=== PATIENT | male | born 1985 | race Caucasian/White ===

== ENCOUNTER 2021-07-12 12:24 | Emergency (ER) | payer OTHER, MEDICAID, SELFPAY ==
[2021-07-12 12:39] VITALS: BP 139/81; PULSE 74; RESP 18; TEMP 36.2; O2SAT 99; BMI 36.5
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
[2021-07-12] MEDS: ACETAMINOPHEN 325 MG TABLET 975 MG PO (14:08)
[2021-07-12 15:02] LABS: Add Manual Diff / Slide Review NO; Basophils Absolute Auto 100 /uL (0-100); Basophils Percent Auto 0.8 % (0-2); Eosinophils Absolute Auto 400 /uL (0-450); Eosinophils Percent Auto 5.6 % (2-4); Hematocrit 52.3 % (41-53); Hemoglobin 17.8 g/dL (13.5-17.5); Lymphocytes Absolute Auto 1600 /uL (1100-4500); Mean Corpuscular Hemoglobin 32.6 PG (26-34); Mean Corpuscular Volume 95.7 fL (80-100); Monocytes Absolute Auto 700 /uL (0-900); Neutrophils Absolute Auto 4700 /uL (1500-7000); Neutrophils Percent Auto 62.6 % (50-75); Platelet Count 155 X10^3/uL (150-400); Red Blood Cell Count 5.47 X10^6/uL (4.5-5.9); Red Cell Distribution Width 13.7 % (11.6-14.8); White Blood Cell Count 7.5 X10^3/uL (4.5-11.0)
[2021-07-12 15:27] LABS: Alanine Aminotransferase 127 IU/L (<50); Albumin 4.7 g/dL (3.5-5.0); Albumin Globulin Ratio 1.3 (1.0-2.8); Alkaline Phosphatase 41 U/L (38-126); Aspartate Aminotransferase 65 IU/L (17-59); BUN Creatinine Ratio 12.5 (6-22); Bilirubin Total 0.8 mg/dL (0.2-1.3); Blood Urea Nitrogen 9 mg/dL (9-20); Calcium 9.3 mg/dL (8.4-10.2); Carbon Dioxide 24 mmol/L (22-32); Chloride 107 mmol/L (98-107); Creatine Kinase 121 U/L (55-170); Estimated Glomerular Filt Rate > 60.0 mL/min (>60); Globulin 3.6 g/dL (1.7-4.1); Glucose 83 mg/dL (70-100); HEMOLYSIS 24 (0-50); Potassium 4.5 mmol/L (3.4-5.1); Sodium 140 mmol/L (137-145); Total Protein 8.3 g/dL (6.3-8.2)
[2021-07-12] MEDS: TRIMETH/SULFA 160/800 (DS) TABLET 1 TAB PO (15:44)
[2021-07-12] MEDS: cephALEXin 250 MG CAPSULE 500 MG PO (15:44)
[2021-07-12 16:19] VITALS: BP 138/80; PULSE 75; RESP 16; O2SAT 99
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
== END 2021-07-12 16:19 | disposition home or self-care (01) ==
PROVIDERS: Emergency Provider Student in an Organized Health Care Education/Training Program
DX: L03.114 Cellulitis of left upper limb (principal); T23.262A Burn of second degree of back of left hand, initial encounter; X15.0XXA Contact with hot stove (kitchen), initial encounter
CPT/HCPCS: 36415; 73130; 80053; 82550; 85025; 99284

== ENCOUNTER 2023-02-02 16:02 | Emergency (ER) | payer OTHER, MEDICAID, SELFPAY ==
[2023-02-02] VITALS (14 sets, daily range): BP systolic 144–196; BP diastolic 84–109; PULSE 59–96; RESP 12–18; TEMP 36.8–37.1; O2SAT 96–100; BMI 35.3
[2023-02-02] MEDS: ONDANSETRON 4 MG ODT SL (16:14)
--- NOTE | 2023-02-02 16:16 | ED.ABDPAIN ---
HPI - Abdominal Pain <DO Joseph Infante Last Filed: 02/04/23 07:28> General Chief Complaint: Abdominal Pain Stated Complaint: LLQ abd pain Time Seen by Provider: 02/02/23 16:12 Source: patient Mode of arrival: Ambulatory History of Present Illness HPI narrative: 38-year-old male smoker with prior history of IV drug abuse presents with a chief complaint of a sudden onset and severe left lower quadrant pain that woke him from sleep. He states it is quite severe and seems to come in waves of intensifying pain without any obvious provocation, palliation or radiation. Denies any trauma or injury. He is had no history of the same. He denies any trouble moving his bowels or with urination. He states the pain is so severe it is making him vomit Related Data Home Medications Medication Instructions Recorded Confirmed methadone 10 mg tablet 71 mg PO Q DAY ##0 07/07/17 Previous Rx's Medication Instructions Recorded sulfamethoxazole 800 1 tab PO BID #20 tabs 07/07/17 mg-trimethoprim 160 mg tablet meloxicam 7.5 mg tablet 7.5 mg PO BID PRN pain #10 tabs 02/02/23 ondansetron 4 mg disintegrating 4 mg PO QID PRN nausea and 02/02/23 tablet vomiting #7 tabs Allergies Allergy/AdvReac Type Severity Reaction Status Date / Time No Known Drug Allergies Allergy Verified 02/02/23 16:14 Review of Systems <DO Joseph Infante Last Filed: 02/04/23 07:28> Review of Systems Narrative: GENERAL: Denies chills, fatigue, malaise, fever, sweats. HEENT: Denies sinus pain, ear pain, sore throat, difficulty swallowing, dizziness. RESPIRATORY: Denies dyspnea, cough, wheezing, hemoptysis, sputum. CARDIOVASCULAR: Denies chest pain, palpitations, orthopnea, edema, GI see HPI : Denies dysuria, frequency, incontinence, hematuria, urinary retention. MUSCULOSKELETAL: denies weakness, joint pain, or bony pain SKIN: Denies rash, skin lesions, or other NEUROLOGIC: Denies weakness, headache, numbness, change in speech, confusion, seizures, incoordination. PSYCHIATRIC: No concerning psychosocial issues. 12 point review of systems is negative except for those stated above Patient History <DO Joseph Infante Last Filed: 02/04/23 07:28> Social History Smoking Status: Current every day smoker Smoking Status: Current every day smoker alcohol intake frequency: 0-2 drinks per day Substance Use Type: marijuana Exam <Cr Ortiz DO - Last Filed: 02/04/23 07:28> Narrative Exam Narrative: GENERAL: [38] year old patient appears stated age. Well-developed patient, in moderate distress HEAD: Atraumatic. Normocephalic. EYES: Pupils equal round and reactive. Extraocular motions intact. No scleral icterus. No injection or drainage. ENT: Nose without bleeding, purulent drainage. Throat without erythema, tonsillar hypertrophy or exudate. Airway patent. NECK: Trachea midline. Non tender CARDIOVASCULAR: Regular rate and rhythm without murmurs, gallops, or rubs. RESPIRATORY: Clear to auscultation. Breath sounds equal bilaterally. No wheezes, rales, or rhonchi. GASTROINTESTINAL: Abdomen soft, significant tenderness left lower quadrant, nondistended. EXTREMITIES: No edema or joint tenderness. BACK: Nontender without deformity or crepitance. No flank tenderness. NEURO: AOx3. SKIN: No rash or erythema of visible areas Initial Vital Signs Initial Vital Signs: Vital Signs Temperature 98.7 F 02/02/23 16:06 Pulse Rate 66 02/02/23 16:06 Respiratory Rate 18 02/02/23 16:06 Blood Pressure 196/109 H 02/02/23 16:06 Pulse Oximetry 96 02/02/23 16:06 Oxygen Delivery Method Room Air 02/02/23 16:06 <Charisma Gimenez DO - Last Filed: 02/03/23 03:52> Initial Vital Signs Initial Vital Signs: Vital Signs Temperature 98.7 F 02/02/23 16:06 Pulse Rate 66 02/02/23 16:06 Respiratory Rate 18 02/02/23 16:06 Blood Pressure 196/109 H 02/02/23 16:06 Pulse Oximetry 96 02/02/23 16:06 Oxygen Delivery Method Room Air 02/02/23 16:06 Course <Cr Ortiz DO - Last Filed: 02/04/23 07:28> Orders Ordered: Discontinued Medications Lidocaine HCl 10 ml/ Sodium (Chloride) 60 mls @ 360 mls/hr IV NOW ONE Stop: 02/02/23 16:45 Last Infusion: 02/02/23 17:18 Dose: 0 mls/hr Documented By: Admin: 02/02/23 16:54 Dose: 360 mls/hr Documented By: BROOKE Sodium Chloride (Normal Saline 0.9%) 1,000 mls @ 1,000 mls/hr IV BOLUS ONE Stop: 02/02/23 17:56 Last Infusion: 02/02/23 18:23 Dose: 0 mls/hr Documented By: Admin: 02/02/23 17:16 Dose: 1,000 mls/hr Documented By: JORDAN Sodium Chloride (Normal Saline 0.9%) 1,000 mls @ 1,000 mls/hr IV BOLUS ONE Stop: 02/02/23 19:27 Last Infusion: 02/02/23 20:02 Dose: 0 mls/hr Documented By: Admin: 02/02/23 18:50 Dose: 1,000 mls/hr Documented By: JORDAN Ketorolac Tromethamine (Ketorolac 30 Mg/Ml Vial) 15 mg IV NOW ONE Stop: 02/02/23 16:45 Last Admin: 02/02/23 16:54 Dose: 15 mg Documented By: BROOKE Lorazepam (Lorazepam 2 Mg/Ml Inj) 1 mg IV NOW ONE Stop: 02/02/23 18:38 Last Admin: 02/02/23 18:50 Dose: 1 mg Documented By: JORDAN Metoclopramide HCl (Metoclopramide 10 Mg/2 Ml Inj) 10 mg IV NOW ONE Stop: 02/02/23 17:34 Last Admin: 02/02/23 17:40 Dose: 10 mg Documented By: JORDAN Ondansetron HCl (Ondansetron 4 Mg/2 Ml Inj) 4 mg IV NOW PRN PRN Reason: Nausea And Vomiting Last Admin: 02/02/23 16:45 Dose: 4 mg Documented By: MILAGROS Ondansetron HCl (Ondansetron 4 Mg Odt) 4 mg SL NOW ONE Stop: 02/02/23 16:13 Last Admin: 02/02/23 16:14 Dose: 4 mg Documented By: MILAGROS Pantoprazole Sodium (Pantoprazole 40 Mg Vial) 40 mg IV NOW ONE Stop: 02/02/23 17:34 Last Admin: 02/02/23 17:40 Dose: 40 mg Documented By: JORDAN Reevaluation(s) Reevaluation #1: Patient feeling significant improvement after Toradol and lidocaine drip Vital Signs Vital signs: Vital Signs - 8 hr 02/02/23 20:00 02/02/23 20:00 Temperature 98.2 F Pulse Rate 96 H Blood Pressure 144/86 H Pulse Oximetry 99 <Charisma Gimenez DO - Last Filed: 02/03/23 03:52> Orders Ordered: Discontinued Medications Lidocaine HCl 10 ml/ Sodium (Chloride) 60 mls @ 360 mls/hr IV NOW ONE Stop: 02/02/23 16:45 Last Infusion: 02/02/23 17:18 Dose: 0 mls/hr Documented By: Admin: 02/02/23 16:54 Dose: 360 mls/hr Documented By: BROOKE Sodium Chloride (Normal Saline 0.9%) 1,000 mls @ 1,000 mls/hr IV BOLUS ONE Stop: 02/02/23 17:56 Last Infusion: 02/02/23 18:23 Dose: 0 mls/hr Documented By: Admin: 02/02/23 17:16 Dose: 1,000 mls/hr Documented By: JORDAN Sodium Chloride (Normal Saline 0.9%) 1,000 mls @ 1,000 mls/hr IV BOLUS ONE Stop: 02/02/23 19:27 Last Infusion: 02/02/23 20:02 Dose: 0 mls/hr Documented By: Admin: 02/02/23 18:50 Dose: 1,000 mls/hr Documented By: JORDAN Ketorolac Tromethamine (Ketorolac 30 Mg/Ml Vial) 15 mg IV NOW ONE Stop: 02/02/23 16:45 Last Admin: 02/02/23 16:54 Dose: 15 mg Documented By: BROOKE Lorazepam (Lorazepam 2 Mg/Ml Inj) 1 mg IV NOW ONE Stop: 02/02/23 18:38 Last Admin: 02/02/23 18:50 Dose: 1 mg Documented By: JORDAN Metoclopramide HCl (Metoclopramide 10 Mg/2 Ml Inj) 10 mg IV NOW ONE Stop: 02/02/23 17:34 Last Admin: 02/02/23 17:40 Dose: 10 mg Documented By: JORDAN Ondansetron HCl (Ondansetron 4 Mg/2 Ml Inj) 4 mg IV NOW PRN PRN Reason: Nausea And Vomiting Last Admin: 02/02/23 16:45 Dose: 4 mg Documented By: MILAGROS Ondansetron HCl (Ondansetron 4 Mg Odt) 4 mg SL NOW ONE Stop: 02/02/23 16:13 Last Admin: 02/02/23 16:14 Dose: 4 mg Documented By: MILAGROS Pantoprazole Sodium (Pantoprazole 40 Mg Vial) 40 mg IV NOW ONE Stop: 02/02/23 17:34 Last Admin: 02/02/23 17:40 Dose: 40 mg Documented By: JORDAN Vital Signs Vital signs: Vital Signs - 8 hr 02/02/23 20:00 02/02/23 20:00 Temperature 98.2 F Pulse Rate 96 H Blood Pressure 144/86 H Pulse Oximetry 99 MDM - Abdominal Pain <Cr Ortiz DO - Last Filed: 02/04/23 07:28> Lab Data 02/02/23 16:40 02/02/23 16:40 Labs: Lab Results 02/02/23 02/02/23 02/02/23 Range/Units 16:40 16:40 16:40 WBC 10.1 (4.5-11.0) X10^3/uL RBC 5.18 (4.5-5.9) X10^6/uL Hgb 17.0 (13.5-17.5) g/dL Hct 49.6 (41-53) % MCV 95.7 (80-100) fL MCH 32.9 (26-34) PG MCHC 34.4 (30-36) % RDW 13.5 (11.6-14.8) % Plt Count 202 (150-400) X10^3/uL Neut % (Auto) 62.4 (50-75) % Lymph % (Auto) 22.6 L (25-40) % [place] % (Auto) 9.3 (3-14) % Eos % (Auto) 5.3 H (2-4) % Baso % (Auto) 0.4 (0-2) % Neut # (Auto) 6300 (0004-4863) /uL Lymph # (Auto) 2300 (1452-1247) /uL [place] # (Auto) 900 (0-900) /uL Eos # (Auto) 500 H (0-450) /uL Baso # (Auto) 0 (0-100) /uL Sodium 139 (137-145) mmol/L Potassium 3.7 (3.4-5.1) mmol/L Chloride 107 (98-107) mmol/L Carbon Dioxide 22 (22-32) mmol/L BUN 10 (9-20) mg/dL Creatinine 0.80 (0.66-1.25) mg/dL Estimated GFR > 60 (>60) mL/min BUN/Creatinine Ratio 12.5 (6-22) Glucose 120 H (70-100) mg/dL Calcium 8.7 (8.4-10.2) mg/dL Magnesium 1.8 (1.6-2.3) mg/dL Total Bilirubin 0.8 (0.2-1.3) mg/dL AST 49 (17-59) IU/L ALT 91 H (<50) IU/L Alkaline Phosphatase 57 (38-126) U/L Total Protein 8.1 (6.3-8.2) g/dL Albumin 4.7 (3.5-5.0) g/dL Globulin 3.4 (1.7-4.1) g/dL Albumin/Globulin Ratio 1.4 (1.0-2.8) Lipase 341 H (23-300) U/L Point of care testing: Urine Dip Bedside Urine Glucose Negative Bedside Urine Bilirubin - Negative Bedside Urine Ketone +/- 5 Urine Specific [place] 1.030 Bedside Urine Occult Blood - Negative Bedside Urine pH 5.5 Bedside Urine Protein - Negative Bedside Urine Urobilinogen - Negative Bedside Urine Nitrite - Negative Bedside Urine Leukocytes - Negative Esterase MDM Narrative Medical decision making narrative: [38] year old patient presents with severe, sudden onset left lower quadrant pain Multiple etiologies for patient's symptoms considered including, but not limited to: [Kidney stone versus bowel obstruction versus other] Prior Charts reviewed in our EMR Primary Historian: patient Labs reviewed and interpreted by myself: No leukocytosis or left shift, Imaging reviewed: Consultations: Patient's symptoms improved over duration of stay with above-stated therapies. Findings and discharge diagnosis discussed with patient/family followed by verbalization of understanding Return precautions discussed with patient/family whom verbalize understanding of diagnosis and plan <Charisma Gimenez, DO - Last Filed: 02/03/23 03:52> Lab Data Labs: Lab Results 02/02/23 02/02/23 02/02/23 Range/Units 16:40 16:40 16:40 WBC 10.1 (4.5-11.0) X10^3/uL RBC 5.18 (4.5-5.9) X10^6/uL Hgb 17.0 (13.5-17.5) g/dL Hct 49.6 (41-53) % MCV 95.7 (80-100) fL MCH 32.9 (26-34) PG MCHC 34.4 (30-36) % RDW 13.5 (11.6-14.8) % Plt Count 202 (150-400) X10^3/uL Neut % (Auto) 62.4 (50-75) % Lymph % (Auto) 22.6 L (25-40) % [place] % (Auto) 9.3 (3-14) % Eos % (Auto) 5.3 H (2-4) % Baso % (Auto) 0.4 (0-2) % Neut # (Auto) 6300 (2920-3935) /uL Lymph # (Auto) 2300 (3044-6258) /uL [place] # (Auto) 900 (0-900) /uL Eos # (Auto) 500 H (0-450) /uL Baso # (Auto) 0 (0-100) /uL Sodium 139 (137-145) mmol/L Potassium 3.7 (3.4-5.1) mmol/L Chloride 107 (98-107) mmol/L Carbon Dioxide 22 (22-32) mmol/L BUN 10 (9-20) mg/dL Creatinine 0.80 (0.66-1.25) mg/dL Estimated GFR > 60 (>60) mL/min BUN/Creatinine Ratio 12.5 (6-22) Glucose 120 H (70-100) mg/dL Calcium 8.7 (8.4-10.2) mg/dL Magnesium 1.8 (1.6-2.3) mg/dL Total Bilirubin 0.8 (0.2-1.3) mg/dL AST 49 (17-59) IU/L ALT 91 H (<50) IU/L Alkaline Phosphatase 57 (38-126) U/L Total Protein 8.1 (6.3-8.2) g/dL Albumin 4.7 (3.5-5.0) g/dL Globulin 3.4 (1.7-4.1) g/dL Albumin/Globulin Ratio 1.4 (1.0-2.8) Lipase 341 H (23-300) U/L Point of care testing: Urine Dip Bedside Urine Glucose Negative Bedside Urine Bilirubin - Negative Bedside Urine Ketone +/- 5 Urine Specific [place] 1.030 Bedside Urine Occult Blood - Negative Bedside Urine pH 5.5 Bedside Urine Protein - Negative Bedside Urine Urobilinogen - Negative Bedside Urine Nitrite - Negative Bedside Urine Leukocytes - Negative Esterase MDM Narrative Medical decision making narrative: [38] year old patient presents with severe, sudden onset left lower quadrant pain Multiple etiologies for patient's symptoms considered including, but not limited to: [Kidney stone versus bowel obstruction versus other] Prior Charts reviewed in our EMR Primary Historian: patient Labs reviewed and interpreted by myself: No leukocytosis or left shift, Imaging reviewed: Consultations: Patient's symptoms improved over duration of stay with above-stated therapies. Findings and discharge diagnosis discussed with patient/family followed by verbalization of understanding Return precautions discussed with patient/family whom verbalize understanding of diagnosis and plan 02/02/23 Mank: Patient was seen evaluated by myself after sign-out. Reviewed labs and imaging. Patient's workup had return but was still having some vomiting was given dose of Ativan which was quite helpful. On re-evaluation patient is feeling improved he would like to return home. He would like to avoid narcotics for pain management but is can continue little bit left lower quadrant pain we did review his imaging there is some esophagitis type changes but he states pain is definitely left lower quadrant. Review patient's workup, imaging, examination and plan for some antinausea medication with return precautions. Patient feels comfortable with this plan. Discharge Plan Departure Patient Disposition: Home Clinical Impression: Abdominal pain, Vomiting Instructions: DI for Vomiting -- Adult Activity Restrictions/Additional Instructions: Please follow-up if persisting. Your imaging does show some thickening or changes to the esophagus and a small hiatal hernia, if you are having epigastric pain or discomfort would be appropriate for EGD. Would also be appropriate to take Pepcid 40 mg once daily. You can take Zofran 1 tablet every 6 hours as needed for nausea and vomiting. You can take Tylenol up to a 1000 mg every 6 hours as needed for pain. And/or meloxicam 1 tablet every 12 hours as needed for pain. This medication is an NSAID do not take with naproxen, ibuprofen or Aleve. Prescription sent to [facility] in [place]. Please return for fevers, persistent vomiting, lightheadedness or passing out, worsening pain, black or bloody stools, difficulty with urination or other new or concerning changes. Prescriptions: New ondansetron 4 mg tablet,disintegrating 4 mg PO QID PRN (Reason: nausea and vomiting) Qty: 7 0RF meloxicam 7.5 mg tablet 7.5 mg PO BID PRN (Reason: pain) Qty: 10 0RF No Action methadone 10 MG tablet 71 mg PO Q DAY Qty: 0 sulfamethoxazole-trimethoprim 800 MG/160 MG tablet 1 tab PO BID Qty: 20 0RF Stand Alone Forms: Patient Portal/API
[2023-02-02] MEDS: ONDANSETRON 4 MG/2 ML INJ IV (16:45)
[2023-02-02] MEDS: LIDOCAINE 2% IV (16:54)
[2023-02-02] MEDS: SODIUM CHLORIDE 0.9% IV (16:54)
[2023-02-02] MEDS: KETOROLAC 30 MG/ML VIAL 15 MG IV (16:54)
--- NOTE | 2023-02-02 16:57 | DI.CT.S_ITS ---
PROCEDURE: CT KIDNEY URETER BLADDER (KUB) INDICATIONS: severe LLQ pain, sudden onset TECHNIQUE: Axial sections were acquired from the lung bases to the pubic symphysis. Coronal and sagittal reformats were performed. For radiation dose reduction, the following was used: automated exposure control, adjustment of mA and/or kV according to patient size. COMPARISON: None. FINDINGS: Image quality: Good Lower chest: Suspected basal atelectasis. Small hiatal hernia and distal esophageal fluid, not well evaluated on CT otherwise. Consider endoscopy correlation if there is concern. Solid organs: The liver appears unremarkable. Gallbladder is unremarkable. No pathologic dilation of the biliary tree or pancreatic duct. No splenomegaly. There are small left adrenal adenomas, measuring up to 1.8 cm, correlate with laboratory studies to determine functional status. No hydronephrosis. No radiopaque calculi. Vessels and lymph nodes: No abdominal aortic aneurysm. No pathologic adenopathy by size criteria. Bowel and peritoneum: No evidence of small bowel obstruction, abscess, or pathologic ascites. The appendix appears normal. Body wall: Partially visualized right possible gynecomastia, not well evaluated on this study. Fat stranding in the bilateral gluteal regions, without drainable fluid collection, correlate with exam findings. Pelvis: Bladder is under distended. Small bilateral fat containing inguinal hernias. Bones: No acute or suspicious osseous finding identified. There are degenerative changes. Leftward spinal curvature peer IMPRESSION: No acute abdominal pelvic abnormality. Small hiatal hernia and possible distal esophagitis and reflux, consider correlation with endoscopy if necessary. Other findings as above. Dictated by: Hong Blakely M.D. on 02/02/2023 at 18:06 Approved by: Hong Blakely M.D. on 02/02/2023 at 18:12
[2023-02-02 17:01] LABS: Add Manual Diff / Slide Review NO; Basophils Absolute Auto 0 /uL (0-100); Basophils Percent Auto 0.4 % (0-2); Eosinophils Absolute Auto 500 /uL (0-450); Eosinophils Percent Auto 5.3 % (2-4); Hematocrit 49.6 % (41-53); Lymphocytes Absolute Auto 2300 /uL (1100-4500); Lymphocytes Percent Auto 22.6 % (25-40); Mean Corpuscular HGB Conc 34.4 % (30-36); Mean Corpuscular Hemoglobin 32.9 PG (26-34); Mean Corpuscular Volume 95.7 fL (80-100); Monocytes Absolute Auto 900 /uL (0-900); Monocytes Percent Auto 9.3 % (3-14); Neutrophils Absolute Auto 6300 /uL (1500-7000); Neutrophils Percent Auto 62.4 % (50-75); Platelet Count 202 X10^3/uL (150-400); Red Blood Cell Count 5.18 X10^6/uL (4.5-5.9); Red Cell Distribution Width 13.5 % (11.6-14.8); White Blood Cell Count 10.1 X10^3/uL (4.5-11.0)
[2023-02-02 17:14] LABS: Alanine Aminotransferase 91 IU/L (<50); Albumin 4.7 g/dL (3.5-5.0); Albumin Globulin Ratio 1.4 (1.0-2.8); Alkaline Phosphatase 57 U/L (38-126); Aspartate Aminotransferase 49 IU/L (17-59); BUN Creatinine Ratio 12.5 (6-22); Bilirubin Total 0.8 mg/dL (0.2-1.3); Blood Urea Nitrogen 10 mg/dL (9-20); Calcium 8.7 mg/dL (8.4-10.2); Carbon Dioxide 22 mmol/L (22-32); Chloride 107 mmol/L (98-107); Estimated Glomerular Filt Rate > 60 mL/min (>60); Globulin 3.4 g/dL (1.7-4.1); Glucose 120 mg/dL (70-100); HEMOLYSIS 17 (0-50); Lipase 341 U/L (23-300); Potassium 3.7 mmol/L (3.4-5.1); Sodium 139 mmol/L (137-145); Total Protein 8.1 g/dL (6.3-8.2)
[2023-02-02 17:15] LABS: Magnesium 1.8 mg/dL (1.6-2.3)
[2023-02-02] MEDS: SODIUM CHLORIDE 0.9% 1,000 ML 1000 ML IV ×2 (17:16→18:50)
[2023-02-02] MEDS: METOCLOPRAMIDE 10 MG/2 ML INJ IV (17:40)
[2023-02-02] MEDS: PANTOPRAZOLE 40 MG VIAL IV (17:40)
[2023-02-02] MEDS: LORazepam 2 MG/ML INJ 1 MG IV (18:50)
== END 2023-02-02 20:22 | disposition home or self-care (01) ==
PROVIDERS: Emergency Medicine; Nurse Practitioner Critical Care Medicine; Emergency Provider Emergency Medicine
DX: R10.32 Left lower quadrant pain (principal); R11.10 Vomiting, unspecified
CPT/HCPCS: 36415; 74176; 80053; 81003; 83690; 83735; 85025; 93005; 93010; 96361; 96365; 96375; 99284; C9113; J1885; J2060; J2405; J2765

== ENCOUNTER 2023-06-21 03:12 | Emergency (ER) | payer OTHER, SELFPAY ==
[2023-06-21] VITALS (9 sets, daily range): BP systolic 116–139; BP diastolic 66–86; PULSE 72–94; RESP 18; TEMP 36.8; O2SAT 93–100; BMI 36.5
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
--- NOTE | 2023-06-21 03:51 | DI.US.S_ITS ---
PROCEDURE: US PERIPH VENOUS UP EXTREM RT INDICATIONS: PAIN, EDEMA TECHNIQUE: Real-time imaging, as well as color and pulse Doppler interrogation, was performed of the right upper extremity deep veins from the inferior neck to the antecubital fossa. COMPARISON: None. FINDINGS: The internal jugular vein, visualized portions of the subclavian vein, axillary, and brachial veins are free of intraluminal thrombus. Where physically possible, the veins are normally compressible. Color and pulse Doppler demonstrate normal intraluminal flow, with expected phasicity and pulsatility. Additional scanning of the cephalic and basilic veins of the superficial system demonstrates normal compressibility, without thrombus. IMPRESSION: No findings of upper extremity deep venous thrombosis can be seen. Findings are concordant with preliminary interpretation provided by [facility]. Dictated by: Nate Martines M.D. on 06/21/2023 at 8:23 Approved by: Nate Martines M.D. on 06/21/2023 at 8:24
[2023-06-21] MEDS: TRIMETH/SULFA 160/800 (DS) TABLET 1 TAB PO (04:00)
[2023-06-21] MEDS: cephALEXin 250 MG CAP PREPACK 1 BOTTLE MISC (04:00)
[2023-06-21 04:38] LABS: Add Manual Diff / Slide Review NO; Basophils Absolute Auto 100 /uL (0-100); Basophils Percent Auto 0.5 % (0-2); Eosinophils Absolute Auto 200 /uL (0-450); Eosinophils Percent Auto 1.3 % (2-4); Hematocrit 45.9 % (41-53); Hemoglobin 15.5 g/dL (13.5-17.5); Lymphocytes Absolute Auto 1400 /uL (1100-4500); Mean Corpuscular HGB Conc 33.9 % (30-36); Mean Corpuscular Hemoglobin 31.9 PG (26-34); Mean Corpuscular Volume 94.3 fL (80-100); Monocytes Absolute Auto 1300 /uL (0-900); Monocytes Percent Auto 11.1 % (3-14); Neutrophils Absolute Auto 8900 /uL (1500-7000); Neutrophils Percent Auto 75.1 % (50-75); Platelet Count 163 X10^3/uL (150-400); Red Blood Cell Count 4.87 X10^6/uL (4.5-5.9); Red Cell Distribution Width 13.7 % (11.6-14.8); White Blood Cell Count 11.8 X10^3/uL (4.5-11.0)
[2023-06-21 04:48] LABS: Lactate (Lactic Acid) 1.5 mmol/L (0.7-2.1)
[2023-06-21 04:49] LABS: Alanine Aminotransferase 64 IU/L (<50); Albumin Globulin Ratio 1.1 (1.0-2.8); Alkaline Phosphatase 47 U/L (38-126); Aspartate Aminotransferase 35 IU/L (17-59); Bilirubin Total 0.6 mg/dL (0.2-1.3); Blood Urea Nitrogen 20 mg/dL (9-20); Calcium 8.8 mg/dL (8.4-10.2); Carbon Dioxide 21 mmol/L (22-32); Chloride 106 mmol/L (98-107); Estimated Glomerular Filt Rate > 60 mL/min (>60); Globulin 3.6 g/dL (1.7-4.1); Glucose 122 mg/dL (70-100); HEMOLYSIS 36 (0-50); Potassium 3.6 mmol/L (3.4-5.1); Sodium 138 mmol/L (137-145); Total Protein 7.6 g/dL (6.3-8.2)
== END 2023-06-21 04:52 | disposition home or self-care (01) ==
PROVIDERS: Emergency Provider Emergency Medicine
DX: L03.113 Cellulitis of right upper limb (principal)
CPT/HCPCS: 80053; 83605; 85025; 93971; 99283; 99284

== ENCOUNTER 2023-06-23 13:03 | Observation (INO) | payer OTHER, SELFPAY ==
[2023-06-23] VITALS (14 sets, daily range): BP systolic 105–138; BP diastolic 55–82; PULSE 60–96; RESP 16–18; TEMP 36.1–36.4; O2SAT 93–99; BMI 35.3
--- NOTE | 2023-06-23 13:19 | DI.US.S_ITS ---
PROCEDURE: US PERIPH VENOUS UP EXTREM RT INDICATIONS: RIGHT UPPER EXTREMITY PAIN, EDEMA REDNESS TECHNIQUE: Real-time imaging, as well as color and pulse Doppler interrogation, was performed of the right upper extremity deep veins from the inferior neck to the antecubital fossa. COMPARISON: [facility], CT, CT UE RT W CON, 06/23/2023, 14:40. [facility], US, US PERIPH VENOUS UP EXTREM RT, 06/21/2023, 4:32. FINDINGS: The internal jugular vein, visualized portions of the subclavian vein, axillary, and brachial veins are free of intraluminal thrombus. Where physically possible, the veins are normally compressible. Color and pulse Doppler demonstrate normal intraluminal flow, with expected phasicity and pulsatility. Additional scanning of the cephalic and basilic veins of the superficial system demonstrates normal compressibility, without thrombus. Cephalic vein is diminutive in caliber. IMPRESSION: No deep venous thrombosis in the right upper extremity. Dictated by: Anjelica Galo M.D. on 06/23/2023 at 15:30 Approved by: Anjelica Galo M.D. on 06/23/2023 at 15:33
--- NOTE | 2023-06-23 13:24 | DI.CT.S_ITS ---
PROCEDURE: CT UE RT W CON INDICATIONS: worsening pain, swelling redness in Right arm TECHNIQUE: After the administration of intravenous contrast, 3 mm axial sections acquired of the right upper extremity , with coronal and sagittal reformats. COMPARISON: None. FINDINGS: Image quality: Excellent. Bones: No trauma or osteomyelitis found. Soft tissues: From the axial level of approximately the middle 3rd of the humerus extending inferiorly to the wrist there is subcutaneous edema within the adipose soft tissues and also mild cutaneous thickening but no abscess formation and no gas within the soft tissues is seen. The pattern is most prominent over the forearm. A foreign body is not identified. No vascular abnormalities such as venous thrombosis or arterial occlusion is seen. Several mildly prominent rounded lymph nodes are identified at the upper extent of this soft tissue abnormality, none with central necrosis or definite malignant-appearing characteristics. IMPRESSION: The pattern discussed above is most likely a manifestation of soft tissue infection without abscess formation or underlying osteomyelitis or foreign body. No evidence of necrotizing fasciitis. No vascular compromise found. Mild reactive adenopathy. Dictated by: Tab Hollins M.D. on 06/23/2023 at 15:24 Approved by: Tab Hollins M.D. on 06/23/2023 at 15:31
--- NOTE | 2023-06-23 13:48 | ED_ITS ---
HPI - Skin/Abscess/Foreign Bdy General Chief complaint: Skin/Abscess/Foreign Body Stated complaint: has celluitus not getting better Time Seen by Provider: 06/23/23 13:19 Source: patient Mode of arrival: Ambulatory History of Present Illness HPI narrative: 38-year-old male smoker and previous IV drug abuser presents for the 2nd time this week and worsening pain, swelling and redness of his right forearm. He had been seen and evaluated a few days ago and diagnosed with cellulitis. He had negative ultrasound and was discharged with a prescription for Keflex and Bactrim. He has been taking as directed and presents today stating he has increased pain, swelling, redness despite taking these medications. He is not dizzy nor weak or lightheaded. He denies chest pain or shortness of breath. He denies fever or chills. He denies numbness, tingling, or weakness Related Data Home Medications Medication Instructions Recorded Confirmed methadone 10 mg tablet 71 mg PO Q DAY ##0 07/07/17 Previous Rx's Medication Instructions Recorded sulfamethoxazole 800 1 tab PO BID #20 tabs 07/07/17 mg-trimethoprim 160 mg tablet meloxicam 7.5 mg tablet 7.5 mg PO BID PRN pain #10 tabs 02/02/23 ondansetron 4 mg disintegrating 4 mg PO QID PRN nausea and 02/02/23 tablet vomiting #7 tabs cephalexin 500 mg capsule 500 mg PO Q6H 7 days #28 caps 06/21/23 sulfamethoxazole 800 1 tab PO BID 10 days #20 tabs 06/21/23 mg-trimethoprim 160 mg tablet (Bactrim DS) Allergies Allergy/AdvReac Type Severity Reaction Status Date / Time No Known Drug Allergies Allergy Verified 06/23/23 13:08 Review of Systems Review of Systems Narrative: GENERAL: See HPI HEENT: Denies sinus pain, ear pain, sore throat, difficulty swallowing, dizziness. RESPIRATORY: Denies dyspnea, cough, wheezing, hemoptysis, sputum. CARDIOVASCULAR: Denies chest pain, palpitations, orthopnea, edema, GASTROINTESTINAL: Denies nausea, vomiting, abdominal pain, diarrhea, constipation, melena. : Denies dysuria, frequency, incontinence, hematuria, urinary retention. MUSCULOSKELETAL: See HPI SKIN: See HPI NEUROLOGIC: Denies weakness, headache, numbness, change in speech, confusion, seizures, incoordination. PSYCHIATRIC: No concerning psychosocial issues. 12 point review of systems is negative except for those stated above Patient History Social History Smoking Status: Current every day smoker Smoking Status: Current every day smoker alcohol intake frequency: 0-2 drinks per day Substance Use Type: marijuana Exam Narrative Exam Narrative: GENERAL: [38] year old patient appears stated age. Well-developed patient, in mild distress. HEAD: Atraumatic. Normocephalic. EYES: Pupils equal round and reactive. Extraocular motions intact. No scleral icterus. No injection or drainage. ENT: Nose without bleeding, purulent drainage. Throat without erythema, tonsillar hypertrophy or exudate. Airway patent. NECK: Trachea midline. Non tender CARDIOVASCULAR: Regular rate and rhythm without murmurs, gallops, or rubs. RESPIRATORY: Clear to auscultation. Breath sounds equal bilaterally. No wheezes, rales, or rhonchi. GASTROINTESTINAL: Abdomen soft, non-tender, nondistended. EXTREMITIES: Worsening pain, swelling and redness, I saw patient myself a few days ago and there is interval change, compartments are tense but no signs of compartment syndrome, cap refill, sensation and motion intact, no obvious induration or fluctuance though there are small areas of drainage BACK: Nontender without deformity or crepitance. No flank tenderness. NEURO: AOx3. SKIN: No rash or erythema of visible areas Initial Vital Signs Initial Vital Signs: Vital Signs Temperature 97.0 F L 06/23/23 13:06 Pulse Rate 96 H 06/23/23 13:06 Respiratory Rate 16 06/23/23 13:06 Blood Pressure 138/72 06/23/23 13:06 Pulse Oximetry 99 06/23/23 13:06 Oxygen Delivery Method Room Air 06/23/23 13:06 Course Orders Ordered: ED Orders 06/23/23 13:19 US periph venous up extrem rt Stat 06/23/23 13:24 CT UE RT w con Stat 06/23/23 14:05 C-Reactive Protein Quant Stat Complete Blood Count AUTO DIFF Stat Comprehensive Metabolic Panel Stat ESR [Erythrocyte Sedimentation Rate] Stat Lactate (Lactic Acid) Stat 06/23/23 14:20 Blood Culture Stat 06/23/23 15:01 Urine Drug Screen, Rapid Stat Discontinued Medications Sodium Chloride (Normal Saline 0.9%) 1,000 mls @ 1,000 mls/hr IV BOLUS ONE Stop: 06/23/23 14:18 Last Infusion: 06/23/23 15:30 Dose: Infused Documented By: Admin: 06/23/23 14:26 Dose: 1,000 mls/hr Documented By: AMV Vancomycin HCl/Dextrose (Vancomycin) 2,000 mg in 400 mls @ 200 mls/hr IV NOW ONE Stop: 06/23/23 15:19 Last Infusion: 06/23/23 16:44 Dose: Infused Documented By: Admin: 06/23/23 14:25 Dose: 200 mls/hr Documented By: AMV Vital Signs Vital signs: Vital Signs - 8 hr 06/23/23 13:06 06/23/23 13:20 06/23/23 13:21 Temperature 97.0 F L Pulse Rate 96 H 88 Respiratory Rate 16 Blood Pressure 138/72 129/76 Pulse Oximetry 99 96 Oxygen Delivery Method Room Air 06/23/23 13:21 06/23/23 13:30 06/23/23 14:00 Temperature Pulse Rate 95 H 88 75 Respiratory Rate Blood Pressure Pulse Oximetry 95 93 96 Oxygen Delivery Method 06/23/23 14:49 06/23/23 14:49 06/23/23 15:00 Temperature Pulse Rate 78 Respiratory Rate Blood Pressure 129/82 126/81 Pulse Oximetry 96 Oxygen Delivery Method 06/23/23 15:00 06/23/23 15:30 06/23/23 15:30 Temperature Pulse Rate 71 68 Respiratory Rate Blood Pressure 131/77 Pulse Oximetry 94 97 Oxygen Delivery Method 06/23/23 16:00 06/23/23 16:00 Temperature Pulse Rate 66 Respiratory Rate Blood Pressure 122/73 Pulse Oximetry 95 Oxygen Delivery Method MDM - Skin/Abscess/Foreign Bdy Lab Data 06/23/23 14:05 06/23/23 14:05 Labs: Lab Results 06/23/23 06/23/23 Range/Units 14:05 15:01 WBC 6.1 (4.5-11.0) X10^3/uL RBC 4.75 (4.5-5.9) X10^6/uL Hgb 15.3 (13.5-17.5) g/dL Hct 44.9 (41-53) % MCV 94.7 (80-100) fL MCH 32.3 (26-34) PG MCHC 34.1 (30-36) % RDW 13.6 (11.6-14.8) % Plt Count 187 (150-400) X10^3/uL Neut % (Auto) 61.4 (50-75) % Lymph % (Auto) 23.8 L (25-40) % [place] % (Auto) 8.4 (3-14) % Eos % (Auto) 5.6 H (2-4) % Baso % (Auto) 0.8 (0-2) % Neut # (Auto) 3700 (1808-1752) /uL Lymph # (Auto) 1400 (5488-5329) /uL [place] # (Auto) 500 (0-900) /uL Eos # (Auto) 300 (0-450) /uL Baso # (Auto) 0 (0-100) /uL ESR 6 (0-15) MM/HR Sodium 137 (137-145) mmol/L Potassium 3.9 (3.4-5.1) mmol/L Chloride 105 (98-107) mmol/L Carbon Dioxide 24 (22-32) mmol/L BUN 14 (9-20) mg/dL Creatinine 0.91 (0.66-1.25) mg/dL Estimated GFR > 60 (>60) mL/min BUN/Creatinine Ratio 15.4 (6-22) Glucose 114 H (70-100) mg/dL Lactate 1.3 (0.7-2.1) mmol/L Calcium 8.9 (8.4-10.2) mg/dL Total Bilirubin 0.6 (0.2-1.3) mg/dL AST 40 (17-59) IU/L ALT 67 H (<50) IU/L Alkaline Phosphatase 40 (38-126) U/L C-Reactive Protein 1.4 H (<1.0) mg/dL Total Protein 7.3 (6.3-8.2) g/dL Albumin 4.0 (3.5-5.0) g/dL Globulin 3.3 (1.7-4.1) g/dL Albumin/Globulin Ratio 1.2 (1.0-2.8) U Opiates 300ng/mL cut Negative (Negative) Ur Oxycodone Screen Negative (Negative) Urine Methadone Screen Negative (Negative) Ur Barbiturates Screen Negative (Negative) U Tricyclic Antidepress Negative (Negative) Ur Phencyclidine Scrn Negative (Negative) Ur Amphetamines Screen Negative (Negative) U Methamphetamines Scrn Negative (Negative) Ur MDMA Scrn (Ecstasy) Negative (Negative) U Benzodiazepines Scrn Positive H (Negative) Urine Cocaine Screen Negative (Negative) U Marijuana (THC) Screen Positive H (Negative) Urine Dip Bedside Urine Glucose Negative Bedside Urine Bilirubin - Negative Bedside Urine Ketone - Negative Urine Specific [place] 1.030 Bedside Urine Occult Blood - Negative Bedside Urine pH 6.0 Bedside Urine Protein - Negative Bedside Urine Urobilinogen - Negative Bedside Urine Nitrite - Negative Bedside Urine Leukocytes - Negative Esterase MDM Narrative Medical decision making narrative: [38] year old patient presents with worsening pain, swelling and redness of right forearm despite taking antibiotics as prescribed Multiple etiologies for patient's symptoms considered including, but not limited to: [Cellulitis failing outpatient versus deep space infection such as abscess versus necrotizing fasciitis versus DVT] Prior Charts reviewed in our EMR Primary Historian: patient Labs reviewed and interpreted by myself: No significant abnormalities requiring intervention Imaging reviewed: Ultrasound demonstrates no DVT, CT shows no obvious deep space infection, evidence of necrotizing fasciitis, abscess or osteomyelitis Consultations: Discussed with hospitalist, happy to accept on his service Patient requires hospitalization secondary to worsening evidence of right upper extremity infection despite outpatient therapies Discharge Plan Departure Patient Disposition: Admitted as Observation Clinical Impression: Failure of outpatient treatment, Cellulitis of arm, right Admit Date/Time: 06/23/23 16:06 Admit Provider: Josué Butt
[2023-06-23 14:17] LABS: Add Manual Diff / Slide Review NO; Basophils Absolute Auto 0 /uL (0-100); Basophils Percent Auto 0.8 % (0-2); Eosinophils Absolute Auto 300 /uL (0-450); Eosinophils Percent Auto 5.6 % (2-4); Hematocrit 44.9 % (41-53); Hemoglobin 15.3 g/dL (13.5-17.5); Lymphocytes Absolute Auto 1400 /uL (1100-4500); Lymphocytes Percent Auto 23.8 % (25-40); Mean Corpuscular HGB Conc 34.1 % (30-36); Mean Corpuscular Hemoglobin 32.3 PG (26-34); Mean Corpuscular Volume 94.7 fL (80-100); Monocytes Absolute Auto 500 /uL (0-900); Monocytes Percent Auto 8.4 % (3-14); Neutrophils Absolute Auto 3700 /uL (1500-7000); Neutrophils Percent Auto 61.4 % (50-75); Platelet Count 187 X10^3/uL (150-400); Red Blood Cell Count 4.75 X10^6/uL (4.5-5.9); Red Cell Distribution Width 13.6 % (11.6-14.8); White Blood Cell Count 6.1 X10^3/uL (4.5-11.0)
[2023-06-23] MEDS: VANCOMYCIN 2,000 MG/400 ML PIGGYBACK 200 MG IV (14:25)
[2023-06-23] MEDS: SODIUM CHLORIDE 0.9% 1,000 ML 1000 ML IV (14:26)
[2023-06-23 14:31] LABS: Lactate (Lactic Acid) 1.3 mmol/L (0.7-2.1)
[2023-06-23 14:35] LABS: Alanine Aminotransferase 67 IU/L (<50); Albumin Globulin Ratio 1.2 (1.0-2.8); Alkaline Phosphatase 40 U/L (38-126); Aspartate Aminotransferase 40 IU/L (17-59); BUN Creatinine Ratio 15.4 (6-22); Bilirubin Total 0.6 mg/dL (0.2-1.3); Blood Urea Nitrogen 14 mg/dL (9-20); C-Reactive Protein Quant 1.4 mg/dL (<1.0); Calcium 8.9 mg/dL (8.4-10.2); Carbon Dioxide 24 mmol/L (22-32); Chloride 105 mmol/L (98-107); Erythrocyte Sedimentation Rate 6 MM/HR (0-15); Estimated Glomerular Filt Rate > 60 mL/min (>60); Globulin 3.3 g/dL (1.7-4.1); Glucose 114 mg/dL (70-100); HEMOLYSIS < 15 (0-50); Potassium 3.9 mmol/L (3.4-5.1); Sodium 137 mmol/L (137-145); Total Protein 7.3 g/dL (6.3-8.2)
[2023-06-23 15:18] LABS: UR Morphine/Opiate cutoff 300 Negative (Negative); Ur Creatinine Normal (Normal); Ur Specific Gravity Normal (Normal); Urine Amphetamines Negative (Negative); Urine Barbiturates Negative (Negative); Urine Benzodiazepines Positive (Negative); Urine Cocaine Negative (Negative); Urine MDMA Negative (Negative); Urine Methadone Negative (Negative); Urine Methamphetamines Negative (Negative); Urine Oxycodone Negative (Negative); Urine Phencyclidine Negative (Negative); Urine Tetrahydrocannabinol Positive (Negative); Urine Tricyclic Antidepressant Negative (Negative); Urine pH Normal (Normal)
--- NOTE | 2023-06-23 17:29 | PM.HP.1 ---
History of Present Illness History of Present Illness Chief complaint: has celluitus not getting better Narrative: Mayra Tyson is a 38yo M with PMH of remote IV drug abuse, previous cellulitis who presents with worsening swelling, redness and pain of his R forearm. Started after burning his R index finger about a week ago. Patient was seen in our ED a few days later on 06/21 and put on po keflex but his symptoms continued to worsen. Represented today with worsening swelling up the forearm so admitted for IV abx. He says his pain is well-controlled. Denies any other symptoms including fever/chills, CP, SOB, NV or diarrhea. [facility] Social History Smoking Status: Current every day smoker Meds Home Medications and Allergies Home Medications Medication Instructions Recorded Confirmed Type methadone 10 mg tablet 71 mg PO Q DAY ##0 07/07/17 History sulfamethoxazole 800 1 tab PO BID #20 tabs 07/07/17 Rx mg-trimethoprim 160 mg tablet meloxicam 7.5 mg tablet 7.5 mg PO BID PRN pain #10 tabs 02/02/23 Rx ondansetron 4 mg disintegrating 4 mg PO QID PRN nausea and 02/02/23 Rx tablet vomiting #7 tabs cephalexin 500 mg capsule 500 mg PO Q6H 7 days #28 caps 06/21/23 Rx sulfamethoxazole 800 1 tab PO BID 10 days #20 tabs 06/21/23 Rx mg-trimethoprim 160 mg tablet (Bactrim DS) Allergies Allergy/AdvReac Type Severity Reaction Status Date / Time No Known Drug Allergies Allergy Verified 06/23/23 13:08 Review of Systems Review of Systems Narrative: All other systems reviewed with the patient and are negative unless otherwise stated. Exam Vital Signs (past 8 hours): - 06/23/23 13:06 06/23/23 13:20 06/23/23 13:21 Temperature 97.0 F L Pulse Rate 96 H 88 Respiratory Rate 16 Blood Pressure 138/72 129/76 Pulse Oximetry 99 96 Oxygen Delivery Method Room Air Oxygen Flow Rate 06/23/23 13:21 06/23/23 13:30 06/23/23 14:00 Temperature Pulse Rate 95 H 88 75 Respiratory Rate Blood Pressure Pulse Oximetry 95 93 96 Oxygen Delivery Method Oxygen Flow Rate 06/23/23 14:49 06/23/23 14:49 06/23/23 15:00 Temperature Pulse Rate 78 Respiratory Rate Blood Pressure 129/82 126/81 Pulse Oximetry 96 Oxygen Delivery Method Oxygen Flow Rate 06/23/23 15:00 06/23/23 15:30 06/23/23 15:30 Temperature Pulse Rate 71 68 Respiratory Rate Blood Pressure 131/77 Pulse Oximetry 94 97 Oxygen Delivery Method Oxygen Flow Rate 06/23/23 16:00 06/23/23 16:00 06/23/23 16:30 Temperature Pulse Rate 66 71 Respiratory Rate Blood Pressure 122/73 Pulse Oximetry 95 95 Oxygen Delivery Method Oxygen Flow Rate 06/23/23 16:30 06/23/23 16:40 06/23/23 16:40 Temperature Pulse Rate 74 Respiratory Rate Blood Pressure 127/81 124/62 Pulse Oximetry 97 Oxygen Delivery Method Oxygen Flow Rate 06/23/23 17:00 06/23/23 17:00 06/23/23 17:27 Temperature 97.6 F Pulse Rate 64 73 Respiratory Rate 18 Blood Pressure 108/55 L 110/62 Pulse Oximetry 96 98 Oxygen Delivery Method Oxygen Flow Rate 0 Oxygen Delivery Method Room Air Oxygen Flow Rate 0 Narrative Exam Narrative: GEN: no acute distress HEENT: moist mucous membranes, PERRL NECK: trachea midline, no JVD CV: regular rate and rhythm, no murmurs PULM: clear bilaterally ABD: soft, nontender, nondistended, no organomegaly EXT: R hand and forearm swelling, skin very taught, no significant warmth, no fluctuance NEURO: awake, alert, oriented, no focal deficits Objective Labs 06/23/23 14:05 06/23/23 14:05 Labs: Laboratory Results - last 24 hr 06/23/23 06/23/23 14:05 15:01 WBC 6.1 RBC 4.75 Hgb 15.3 Hct 44.9 MCV 94.7 MCH 32.3 MCHC 34.1 RDW 13.6 Plt Count 187 Neut % (Auto) 61.4 Lymph % (Auto) 23.8 L [place] % (Auto) 8.4 Eos % (Auto) 5.6 H Baso % (Auto) 0.8 Neut # (Auto) 3700 Lymph # (Auto) 1400 [place] # (Auto) 500 Eos # (Auto) 300 Baso # (Auto) 0 ESR 6 Sodium 137 Potassium 3.9 Chloride 105 Carbon Dioxide 24 BUN 14 Creatinine 0.91 Estimated GFR > 60 BUN/Creatinine Ratio 15.4 Glucose 114 H Lactate 1.3 Calcium 8.9 Total Bilirubin 0.6 AST 40 ALT 67 H Alkaline Phosphatase 40 C-Reactive Protein 1.4 H Total Protein 7.3 Albumin 4.0 Globulin 3.3 Albumin/Globulin Ratio 1.2 U Opiates 300ng/mL cut Negative Ur Oxycodone Screen Negative Urine Methadone Screen Negative Ur Barbiturates Screen Negative U Tricyclic Antidepress Negative Ur Phencyclidine Scrn Negative Ur Amphetamines Screen Negative U Methamphetamines Scrn Negative Ur MDMA Scrn (Ecstasy) Negative U Benzodiazepines Scrn Positive H Urine Cocaine Screen Negative U Marijuana (THC) Screen Positive H Assessment & Plan Assessment & Plan narrative: # right forearm cellulitis -failed outpatient oral treatment with Keflex -start Rocephin and vanc, check MRSA swab as this is his 2nd cellulitis episode -ultrasound and CT of right arm reassuring without DVT or abscess -elevate R arm, use ice packs to aid in reducing swelling # remote IV drug use -has been sober for years now Code status is full code. DVT prophylaxis with SCDs. Proxy is mother Jenny. I have reviewed home meds and used all available resources to reconcile the home meds. Case discussed with ED physician/APC and patient will be admitted to the hospitalist service for further workup and management. This patient will be admitted as observation and will require less than 2 midnights of hospital time to treat cellulitis.
[2023-06-23 18:26] LABS: Magnesium 1.9 mg/dL (1.6-2.3)
[2023-06-23] MEDS: cefTRIAXone 2,000 MG in SODIUM CHLORIDE 0.9% 100 ML 200 MG IV (18:30)
[2023-06-23] MEDS: SODIUM CHLORIDE 0.9% FLUSH 10 ML IV ×2 (19:28→20:52)
[2023-06-23 22:20] LABS: MRSA (Nasal) PCR Not Detected (Not Detect)
--- NOTE | 2023-06-23 22:52 | PC.NURSE ---
Patient is alert and oriented. Breath sounds CTA with RA sat of 97%. HRR. Denied nausea. BT present and is passing flatus. Denied dysuria with urination. Independent with mobility. Dressing to right arm is CDI; has visible reddened areas to side and proximal to dressing. Denied pain but states it feels tight. Currently asleep but will provide ice pack and encourage elevation when next awakened for vital signs. Provided education re: DVT prevention but declined use of SCD's so reminded to ankle wave and encouraged mobility out of bed. Fall risk score is low.
[2023-06-24] MEDS: SODIUM CHLORIDE 0.9% FLUSH 10 ML IV ×2 (05:18→09:00)
[2023-06-24 05:36] LABS: Add Manual Diff / Slide Review NO; Basophils Absolute Auto 100 /uL (0-100); Basophils Percent Auto 1.3 % (0-2); Eosinophils Absolute Auto 400 /uL (0-450); Eosinophils Percent Auto 6.4 % (2-4); Hematocrit 44.9 % (41-53); Hemoglobin 15.3 g/dL (13.5-17.5); Lymphocytes Absolute Auto 1700 /uL (1100-4500); Lymphocytes Percent Auto 29.3 % (25-40); Mean Corpuscular Hemoglobin 32.2 PG (26-34); Mean Corpuscular Volume 94.6 fL (80-100); Monocytes Absolute Auto 500 /uL (0-900); Monocytes Percent Auto 9.2 % (3-14); Neutrophils Absolute Auto 3200 /uL (1500-7000); Neutrophils Percent Auto 53.8 % (50-75); Platelet Count 176 X10^3/uL (150-400); Red Blood Cell Count 4.75 X10^6/uL (4.5-5.9); Red Cell Distribution Width 13.4 % (11.6-14.8); White Blood Cell Count 5.9 X10^3/uL (4.5-11.0)
[2023-06-24 05:46] LABS: BUN Creatinine Ratio 15.6 (6-22); Blood Urea Nitrogen 12 mg/dL (9-20); Calcium 8.6 mg/dL (8.4-10.2); Carbon Dioxide 23 mmol/L (22-32); Chloride 107 mmol/L (98-107); Estimated Glomerular Filt Rate > 60 mL/min (>60); Glucose 93 mg/dL (70-100); HEMOLYSIS < 15 (0-50); Potassium 4.1 mmol/L (3.4-5.1); Sodium 136 mmol/L (137-145)
[2023-06-24 06:00] VITALS: BP 122/76; PULSE 67; RESP 17; TEMP 36.2; O2SAT 96
[2023-06-24] MEDS: IBUPROFEN 400 MG TABLET 800 MG PO (08:25)
[2023-06-24] MEDS: ACETAMINOPHEN 325 MG TABLET 650 MG PO (08:26)
[2023-06-24 12:00] VITALS: BP 130/73; PULSE 68; RESP 16; TEMP 36.8; O2SAT 98
--- NOTE | 2023-06-24 12:19 | CM.DANOTE ---
Reviewd EMR for pt's medical status and initial anticipated d/c needs. Met with pt at bedside to introduce self and role. Pt was found to be awake, oriented, able to participate in [employer] visit. Payor: L&I PCP: None, no insurance Pt is a 38 year-old M who presented to the ED on 06/23 for the second time this week with worsening pain/swelling/redness in his R-forearm. 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 Pt was admitted for cellulites and was started on IV ABO's. Plan: Cont. ABO's through tomorrow with possible d/c 06/25, pending efficacy of ABO's. DCP to cont. to follow. Discharge Planning/Care Management CM Discharge Assessment Start: 06/24/23 12:16 Freq: Status: Active Protocol: Document 06/24/23 12:17 DPL (Rec: 06/24/23 12:19 DPL [id number]) Discharge Planning Assessment Assigned Measurement Psychologist PIYUSH Davidson Advance Directives? No History Provided By Patient,Medical Record Expected Length of Stay 2 Has Patient been admitted in last 30 No days? Prior Living Arrangements House Household Members family Type of transporation used prior to Drives own vehicle admit Independent with ADL's Yes Is patient alert and oriented? Yes Caregiver for Another No Comment None Comment N/A Comment No anticipated home d/c needs identified at this time. Barriers to Discharge No Discharge Plan Home Transportation Arrangement N/A Referrals Initiated None needed Additional Comment Brother will provide transport home when ready. Whiteboard Updated in Patient Room with Yes name and ext. # of Measurement Psychologist Review Status In Process Please Provide Date Initial DC 06/24/23 Assessment Was Performed
--- NOTE | 2023-06-24 16:15 | PM.PN.1 ---
Subjective Subjective Interval history: Swelling of RUE improving and skin less taught today. Exam Vital Signs (past 8 hours): - 06/24/23 12:00 Temperature 98.3 F Pulse Rate 68 Respiratory Rate 16 Blood Pressure 130/73 Pulse Oximetry 98 Oxygen Flow Rate 0 Oxygen Delivery Method Room Air Oxygen Flow Rate 0 Narrative Exam Narrative: GEN: no acute distress HEENT: moist mucous membranes, PERRL NECK: trachea midline, no JVD CV: regular rate and rhythm, no murmurs PULM: clear bilaterally ABD: soft, nontender, nondistended, no organomegaly EXT: R hand and forearm swelling, skin less taught now, no significant warmth, no fluctuance NEURO: awake, alert, oriented, no focal deficits Objective Labs 06/24/23 05:05 06/24/23 05:05 Labs: Laboratory Results - last 24 hr 06/23/23 06/23/23 06/24/23 14:05 20:54 05:05 WBC 5.9 RBC 4.75 Hgb 15.3 Hct 44.9 MCV 94.6 MCH 32.2 MCHC 34.0 RDW 13.4 Plt Count 176 Neut % (Auto) 53.8 Lymph % (Auto) 29.3 [place] % (Auto) 9.2 Eos % (Auto) 6.4 H Baso % (Auto) 1.3 Neut # (Auto) 3200 Lymph # (Auto) 1700 [place] # (Auto) 500 Eos # (Auto) 400 Baso # (Auto) 100 Sodium 136 L Potassium 4.1 Chloride 107 Carbon Dioxide 23 BUN 12 Creatinine 0.77 Estimated GFR > 60 BUN/Creatinine Ratio 15.6 Glucose 93 Calcium 8.6 Magnesium 1.9 Nasal Screen MRSA (PCR) Not detected [facility] Social History household members: family Smoking Status: Current every day smoker Assessment & Plan Assessment & Plan narrative: # right forearm cellulitis, improving -failed outpatient oral treatment with Keflex -start Rocephin and vanc, MRSA swab negative stopped vanc -ultrasound and CT of right arm reassuring without DVT or abscess -elevate R arm, use ice packs to aid in reducing swelling # remote IV drug use -has been sober for years now Code status is full code. DVT prophylaxis with SCDs. Proxy is mother Jenny. Dispo: Home in 1-2 days.
[2023-06-24] MEDS: cefTRIAXone 2,000 MG in SODIUM CHLORIDE 0.9% 100 ML 200 MG IV (17:34)
[2023-06-24 18:43] VITALS: BP 132/80; PULSE 72; RESP 16; TEMP 36.7; O2SAT 97
[2023-06-24 20:20] VITALS: BP 145/84; PULSE 70; RESP 16; TEMP 36.6; O2SAT 95
--- NOTE | 2023-06-24 22:39 | PC.NURSE ---
Patient is alert and oriented. Breath sounds CTA with RA sat of 95%. HRR w/BP of 145/84. Denied nausea. BT present and reports having had BM earlier today. Denied dysuria. Is independent with mobility so is declining use of SCD's. Edema still present in right hand/forearm but softer to touch. Open area on right forearm noted and has had no further drainage so now ICER MACHINE. Does have some patchy redness around but no difference in temperature of skin. Burn noted on right index finger. Denied pain. Declines use of ice pack but is agreeable to having arm elevated on pillows. Fall risk score is low. Hoping to be able to DC in a.m.
[2023-06-24 23:38] VITALS: BP 144/94; PULSE 68; RESP 16; TEMP 36.6; O2SAT 94
[2023-06-25] MEDS: SODIUM CHLORIDE 0.9% FLUSH 10 ML IV ×2 (05:52→09:11)
[2023-06-25 06:05] VITALS: BP 121/75; PULSE 62; RESP 16; TEMP 36.2; O2SAT 95
[2023-06-25 07:00] VITALS: BP 127/79; PULSE 64; RESP 16; TEMP 36.1; O2SAT 97
[2023-06-25 09:39] LABS: Add Manual Diff / Slide Review NO; Basophils Absolute Auto 0 /uL (0-100); Basophils Percent Auto 0.6 % (0-2); Eosinophils Absolute Auto 300 /uL (0-450); Eosinophils Percent Auto 4.1 % (2-4); Hematocrit 46.7 % (41-53); Hemoglobin 16.1 g/dL (13.5-17.5); Lymphocytes Absolute Auto 1500 /uL (1100-4500); Lymphocytes Percent Auto 19.2 % (25-40); Mean Corpuscular HGB Conc 34.5 % (30-36); Mean Corpuscular Hemoglobin 32.5 PG (26-34); Mean Corpuscular Volume 94.2 fL (80-100); Monocytes Absolute Auto 600 /uL (0-900); Monocytes Percent Auto 7.7 % (3-14); Neutrophils Absolute Auto 5400 /uL (1500-7000); Neutrophils Percent Auto 68.4 % (50-75); Platelet Count 181 X10^3/uL (150-400); Red Blood Cell Count 4.96 X10^6/uL (4.5-5.9); Red Cell Distribution Width 13.6 % (11.6-14.8); White Blood Cell Count 7.8 X10^3/uL (4.5-11.0)
[2023-06-25 09:48] LABS: BUN Creatinine Ratio 17.5 (6-22); Blood Urea Nitrogen 11 mg/dL (9-20); Calcium 8.9 mg/dL (8.4-10.2); Carbon Dioxide 22 mmol/L (22-32); Chloride 107 mmol/L (98-107); Estimated Glomerular Filt Rate > 60 mL/min (>60); Glucose 120 mg/dL (70-100); HEMOLYSIS < 15 (0-50); Potassium 3.9 mmol/L (3.4-5.1); Sodium 138 mmol/L (137-145)
--- NOTE | 2023-06-25 10:23 | P.DS_ITS ---
History of Present Illness History of Present Illness Chief complaint: has celluitus not getting better Narrative: Mayra Tyson is a 38yo M with PMH of remote IV drug abuse, previous cellulitis who presents with worsening swelling, redness and pain of his R forearm. Started after burning his R index finger about a week ago. Patient was seen in our ED a few days later on 06/21 and put on po keflex but his symptoms continued to worsen. Represented today with worsening swelling up the forearm so admitted for IV abx. He says his pain is well-controlled. Denies any other symptoms including fever/chills, CP, SOB, NV or diarrhea. Discharge Providers Provider Date of admission: 06/23/23 16:06 Discharge Date: 06/25/23 Primary care physician: Doctor Rendon, Discharge provider: Josué Butt DO Summary Hospital Course Discharge Diagnosis: # right forearm cellulitis, improving -failed outpatient oral treatment with Keflex -start Rocephin and vanc, MRSA swab negative stopped vanc -ultrasound and CT of right arm reassuring without DVT or abscess -elevate R arm, use ice packs to aid in reducing swelling -finished 3 days of IV rocephin, discharged on 5 more days of po linezolid with Goodrx coupon # remote IV drug use -has been sober for years now Hospital Course: Admitted for R forearm cellulitis which improved with IV antibiotics over 2 days. He was discharged on po linezolid to finish 5 more days. Exam Vital Signs (past 8 hours): - 06/25/23 06:05 06/25/23 07:00 06/25/23 08:45 Temperature 97.2 F L 97.0 F L Pulse Rate 62 64 Respiratory Rate 16 16 Blood Pressure 121/75 127/79 Pulse Oximetry 95 97 Oxygen Delivery Method Room Air Oxygen Flow Rate 0 0 Oxygen Delivery Method Room Air Oxygen Flow Rate 0 Narrative Exam Narrative: GEN: no acute distress HEENT: moist mucous membranes, PERRL NECK: trachea midline, no JVD CV: regular rate and rhythm, no murmurs PULM: clear bilaterally ABD: soft, nontender, nondistended, no organomegaly EXT: R hand and forearm swelling, skin less taught now, no significant warmth, no fluctuance NEURO: awake, alert, oriented, no focal deficits Objective Labs 06/25/23 09:35 06/25/23 09:35 Labs: Laboratory Results - last 24 hr 06/25/23 09:35 WBC 7.8 RBC 4.96 Hgb 16.1 Hct 46.7 MCV 94.2 MCH 32.5 MCHC 34.5 RDW 13.6 Plt Count 181 Neut % (Auto) 68.4 Lymph % (Auto) 19.2 L [place] % (Auto) 7.7 Eos % (Auto) 4.1 H Baso % (Auto) 0.6 Neut # (Auto) 5400 Lymph # (Auto) 1500 [place] # (Auto) 600 Eos # (Auto) 300 Baso # (Auto) 0 Sodium 138 Potassium 3.9 Chloride 107 Carbon Dioxide 22 BUN 11 Creatinine 0.63 L Estimated GFR > 60 BUN/Creatinine Ratio 17.5 Glucose 120 H Calcium 8.9 PFSH Social History household members: family Smoking Status: Current every day smoker Discharge Plan Discharge Plan Provider Discharge Comment: You were admitted for R forearm infection. This improved with IV antibiotics and you will now finish 5 more days of oral linezolid at home. Discharge orders & Medications Discharge Orders: Discharge (Order); Ordered 06/25/23 Ordered By: Josué Butt Prescriptions: New linezolid 600 mg tablet 600 mg PO BID 5 Days Qty: 10 0RF Rx Instructions: start on 06/26 Follow up/Referrals: Doctor Rendon MD [Primary Care Provider] - Visit Report/Discharge Packet Stand Alone Forms: Patient Portal/API, Stroke Signs & Symptoms Discharge Data Primary Care Provider: Doctor Julieta Attending Provider: Josué Butt Admit Date/Time: 06/23/23 16:06
[2023-06-25] MEDS: cefTRIAXone 2,000 MG in SODIUM CHLORIDE 0.9% 100 ML 200 MG IV (11:32)
--- NOTE | 2023-06-25 12:36 | PC.NURSE ---
Pt discharged home at 1230, escorted off floor in wheelchair accompanied by family member and hospital staff. IV removed, discharge teaching provided including new antibiotic, worsening symptoms and recommended follow up appointments (pt does not have a PCP). Questions answered. Patient left the floor with all belongings.
== END 2023-06-25 12:53 | disposition home or self-care (01) ==
LOC: ED 15:39 → AC 16:07
PROVIDERS: Admitting Provider Student in an Organized Health Care Education/Training Program; Emergency Provider Emergency Medicine; Referring Provider Emergency Medicine; Visit Provider Student in an Organized Health Care Education/Training Program
DX: L03.113 Cellulitis of right upper limb (principal); F17.210 Nicotine dependence, cigarettes, uncomplicated; F12.90 Cannabis use, unspecified, uncomplicated
CPT/HCPCS: 36415; 36592; 73201; 80048; 80053; 80305; 81003; 83605; 83735; 85025; 85651; 86140; 87040; 87797; 93971; 96365; 96366; 96367; 99284; G0378; J0696; J1642

== ENCOUNTER 2024-12-13 19:42 | Emergency (ER) | payer OTHER, SELFPAY ==
[2023-06-23 16:09] VITALS: BMI 35.3
[2024-12-13 19:54] VITALS: BP 142/86; PULSE 87; RESP 16; TEMP 36.9; O2SAT 95; BMI 36.5
[2024-12-13 23:12] VITALS: BP 143/95; PULSE 87; RESP 18; TEMP 36.8; O2SAT 98
[2024-12-14] MEDS: DOXYCYCLINE HYCLATE 100 MG TABLET PO (00:50)
[2024-12-14] MEDS: LIDOCAINE/PRILOCAINE 5 GM TOP (00:50)
--- NOTE | 2024-12-14 00:54 | ED.BURNSMOKE ---
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 He did have shoes and socks on however the oil was able to leak through and burned in approximately 1.5 cm in diameter circular area on the dorsum of the foot. Has been doing well until today when it began swelling and hurting more with slight erythema. Patient has been doing excellent home care but is concerned that it is now infected. He has had prior funez that ended up with secondary infections and hospitalizations comes in hoping to prevent any of that. He is reporting no fevers or chills. Related Data Previous Rx's Medication Instructions Recorded doxycycline hyclate 100 mg capsule 100 mg PO BID #20 caps 12/14/24 Allergies Allergy/AdvReac Type Severity Reaction Status Date / Time No Known Drug Allergies Allergy Verified 06/23/23 13:08 Review of Systems Review of Systems Narrative: Pertinent positive and negative findings as per HPI Patient History Social History household members: family Smoking Status: Current every day smoker Smoking Status: Current every day smoker tobacco type: cigarettes alcohol intake frequency: 0-2 drinks per day Exam Initial Vital Signs Initial Vital Signs: Vital Signs Temperature 98.4 F 12/13/24 19:54 Pulse Rate 87 12/13/24 19:54 Respiratory Rate 16 12/13/24 19:54 Blood Pressure 142/86 H 12/13/24 19:54 Pulse Oximetry 95 12/13/24 19:54 Oxygen Delivery Method Room Air 12/13/24 19:54 General: Alert appropriate in no acute distress Respiratory: Able to speak in full sentences, no obvious respiratory distress Skin: No obvious rashes, warm and dry Neurologic: Grossly intact no obvious asymmetries or abnormalities Psych: appropriate insight and affect, cooperative Extremity: 1.5 center mm in diameter round second-degree burn on the dorsum of the left foot. There is some mild eschar in the center but it does look like there is healthy granulation tissue as well. No lymphangitic streaking but there is increasing swollen over the dorsum an particularly on the lateral aspect of the wound some increasing redness and tenderness Course Orders Ordered: Discontinued Medications Bacitracin (Bacitracin Oint 0.9 Gm Pckt) 5 applic TOP NOW ONE Stop: 12/14/24 00:09 Last Admin: 12/14/24 01:08 Dose: 5 applic Documented By: Doxycycline Hyclate (Doxycycline Hyclate 100 Mg Tablet) 100 mg PO NOW ONE Stop: 12/14/24 00:09 Last Admin: 12/14/24 00:50 Dose: 100 mg Documented By: Lidocaine/Prilocaine (Lidocaine/Prilocaine 5 Gm) 5 gm TOP NOW ONE Stop: 12/14/24 00:09 Last Admin: 12/14/24 00:50 Dose: 5 gm Documented By: Vital Signs Vital signs: Vital Signs - 8 hr 12/13/24 19:54 12/13/24 23:12 Temperature 98.4 F 98.3 F Pulse Rate 87 87 Respiratory Rate 16 18 Blood Pressure 142/86 H 143/95 H Pulse Oximetry 95 98 Oxygen Delivery Method Room Air Room Air MDM - Burn/Smoke Inhalation MDM Narrative Medical decision making narrative: 39-year-old gentleman with oil burn to the dorsum of the left foot. This is an L and I injury. Becoming infected without signs of sepsis. The wound itself is slightly debrided to get the current eschar off. Bacitracin is applied and dressing is placed. He declines any pain medications at this time. He is given his 1st dose of doxycycline and will prescribe 10 additional days for such. Talked about appropriate wound care, he is well aware of what worsening wound symptoms look like and reasons to return to the emergency department. He will not need to take any time off work and L and I forms are filled out. There was no indication for additional workup or hospitalization and he is safe for discharge Discharge Plan Departure Patient Disposition: Home Clinical Impression: Burn of second degree of left foot, initial encounter Cellulitis Qualifiers: Site of cellulitis: extremity Site of cellulitis of extremity: lower extremity Laterality: left Qualified Code(s): L03.116 - Cellulitis of left lower limb Instructions: DI for [place] Activity Restrictions/Additional Instructions: Thank you for coming in today It looks like you have been taking very good care of the burn however it does look like it is beginning to become infected. I am glad you came in earlier rather than later. I was able to scrape off some of the tissue in the center of the burn and it looks like it is healing nicely. I am going to give you a prescription for doxycycline, an antibiotic, this is taken twice a day for additional 10 days. Please do keep antibiotic ointment and dressing over the wound until it has essentially resolved. If you are having increasing pain, redness, fevers, streaks up your leg or other concerns you do need to return to the ER Prescriptions: New doxycycline hyclate 100 mg capsule 100 mg PO BID Qty: 20 0RF Referrals: Miscellaneous,Doctor, MD [Primary Care Provider] - Stand Alone Forms: Patient Portal/API/Survey
[2024-12-14] MEDS: BACITRACIN OINT 0.9 GM PCKT 5 APPLIC TOP (01:08)
[2024-12-14 01:36] VITALS: BP 117/87; PULSE 69; RESP 16; O2SAT 96
== END 2024-12-14 01:36 | disposition home or self-care (01) ==
PROVIDERS: Emergency Provider Emergency Medicine
DX: T25.222A Burn of second degree of left foot, initial encounter (principal); X10.2XXA Contact with fats and cooking oils, initial encounter; L03.116 Cellulitis of left lower limb
CPT/HCPCS: 99283

== ENCOUNTER 2025-05-22 22:23 | Emergency (ER) | payer SELFPAY ==
[2023-06-23 16:09] VITALS: BMI 35.3
[2025-05-22 22:27] VITALS: BP 130/76; PULSE 94; RESP 16; TEMP 37.1; O2SAT 98; BMI 37.7
--- NOTE | 2025-05-22 22:30 | DI.RAD.S_ITS ---
PROCEDURE: XR KNEE LT 3V INDICATIONS: knee pain TECHNIQUE: 3 views of the knee were acquired. COMPARISON: None. FINDINGS: Bones: No fractures or dislocations. No suspicious bony lesions. Soft tissues: No joint effusion. No suspicious soft tissue calcifications. IMPRESSION: No acute bony abnormality or significant effusion. Approved by: Janice Quijano M.D.,Ph.D. on 05/23/2025 at 0:24
--- NOTE | 2025-05-22 22:38 | DI.US.S_ITS ---
PROCEDURE: US PERIPH VENOUS LOW EXTREM LT INDICATIONS: swelling and bruising TECHNIQUE: Real-time imaging, as well as color and pulse Doppler interrogation, were performed of the lower extremity deep veins from the inguinal ligament to the popliteal fossa, with documentation of the visualized calf veins. COMPARISON: None. FINDINGS: The common femoral, femoral, popliteal, and the visualized calf veins are normally compressible, and free of intraluminal thrombus. Color and pulse Doppler demonstrate normal phasic intraluminal flow. There is normal augmentation response to distal compression maneuver. IMPRESSION: No findings of lower extremity deep venous thrombosis. Approved by: Janice Quijano M.D.,Ph.D. on 05/23/2025 at 1:02
--- NOTE | 2025-05-23 00:24 | ED.EXTPRO ---
HPI - Extremity Problem General Chief complaint: Extremity Problem,Nontraumatic Stated complaint: Lt knee pain/injury x few weeks Time Seen by Provider: 05/22/25 22:30 Source: patient Mode of arrival: Ambulatory History of Present Illness HPI Narrative: 40-year-old gentleman history of previous IV drug use presents with left knee pain after falling approximately a month ago for which he had not done anything for it. In fact he actually went back to [place] for 2 and half weeks and just came back a few days ago. He denies any chest pain shortness breath. Worse with ambulation and he localizes it to the left knee region. Other than what is stated 14 point review of system is negative. Related Data Previous Rx's ?Medication ?Instructions ?Recorded doxycycline hyclate 100 mg capsule 100 mg PO BID #20 caps 12/14/24 Allergies Allergy/AdvReac Type Severity Reaction Status Date / Time No Known Drug Allergies Allergy Verified 06/23/23 13:08 Review of Systems Review of Systems ROS Unobtainable: All systems reviewed & are unremarkable except as noted in HPI and below Patient History Social History household members: family Smoking Status: Current every day smoker tobacco type: cigarettes alcohol intake frequency: 0-2 drinks per day Exam Narrative Exam Narrative: GENERAL: [40] year old patient appears stated age. Well-developed patient, in mild distress. HEAD: Atraumatic. Normocephalic. EYES: Pupils equal round and reactive. Extraocular motions intact. No scleral icterus. No injection or drainage. EXTREMITIES: Left knee varus valgus anterior posterior drawer Tay's and Violet's intact. Motor sensory intact +2 DP +2 PT cap refill less than 2 seconds. Left proximal knee tender to palpate no obvious deformity, redness, warmth, bleeding or active discharge. BACK: Nontender without deformity or crepitance. No flank tenderness. NEURO: AOx3. SKIN: No rash or erythema of visible areas Initial Vital Signs Initial Vital Signs: Vital Signs Temperature 98.8 F 05/22/25 22:27 Pulse Rate 94 H 05/22/25 22:27 Respiratory Rate 16 05/22/25 22:27 Blood Pressure 130/76 05/22/25 22:27 Pulse Oximetry 98 05/22/25 22:27 Oxygen Delivery Method Room Air 05/22/25 22:27 Course Orders Ordered: ED Orders 05/22/25 22:30 XR knee LT 3V Stat 05/22/25 22:38 US periph venous low extrem lt Stat Vital Signs Vital signs: Vital Signs - 8 hr 05/22/25 22:27 Temperature 98.8 F Pulse Rate 94 H Respiratory Rate 16 Blood Pressure 130/76 Pulse Oximetry 98 Oxygen Delivery Method Room Air MDM - Extremity (Nontraumatic) Imaging Data Extremity x-ray #1: Radiologist's Impression: [address] [address] XRay Report Signed Patient: Luis Cordova MR#: [id number] : 06/05/1993 Acct:[id number] Age/Sex: 31 / F Date of Service: 05/22/25 Loc: ED Accession Number: [id number] Procedure: XR chest 1V Ordering Provider: Rodrigo Jo D.O. PROCEDURE: XR CHEST 1V INDICATIONS: Chest Pain TECHNIQUE: One view of the chest was acquired. COMPARISON: [facility], , XR CHEST 1V, 01/16/2025, 5:12. FINDINGS: Surgical changes and devices: Right IJ central venous catheter with tip projecting over the right atrium. Lungs and pleura: Lungs are clear. No pleural effusions or pneumothorax. Mediastinum: Mediastinal contours appear normal. Heart size is normal. Bones and chest wall: No suspicious bony lesions. Overlying soft tissues appear unremarkable. IMPRESSION: No acute cardiopulmonary abnormality is seen. [facility] Narrative Medical decision making narrative: Vital signs nurse triage note medication list previous ER visits in all imaging studies reviewed. Left knee x-ray showed no acute bony abnormality or significant effusion. Ultrasound negative for DVT. We will refer the patient to [facility] for further evaluation. Differential diagnosis osteoarthritis, DVT, superficial thrombophlebitis, cellulitis, meniscal injury, ligament strain. Discharge Plan Departure Patient Disposition: Home Clinical Impression: Acute knee pain Instructions: DI for Knee Pain Activity Restrictions/Additional Instructions: Return with new or worsening symptoms. Follow up with [facility] referral. Alternate Tylenol ibuprofen for pain control. Prescriptions: No Action doxycycline hyclate 100 mg capsule 100 mg PO BID Qty: 20 0RF Referrals: Miscellaneous,[facility] [Primary Care Provider, Medical] Stand Alone Forms: Patient Portal/API
[2025-05-23 00:46] VITALS: BP 115/69; PULSE 81; RESP 16; O2SAT 96
== END 2025-05-23 00:47 | disposition home or self-care (01) ==
PROVIDERS: Emergency Provider Family Medicine
DX: M25.562 Pain in left knee (principal); R07.9 Chest pain, unspecified
CPT/HCPCS: 10060; 73562; 93971; 99281; 99283